=== PATIENT | female | born 1935 ===

== ENCOUNTER 2019-04-30 02:36 | Inpatient (IN) ==
[2019-04-30] MEDS ORDERED: DEXTROSE 50% 25 GM/50 ML VIAL IV PRN (06:14)
[2019-04-30] MEDS ORDERED: ONDANSETRON 4 MG/2 ML VIAL IV PRN (06:14)
[2019-04-30] MEDS ORDERED: GLUCAGON 1 MG VIAL IM PRN (06:14)
[2019-04-30 07:12] LABS: Troponin I 1.73 NG/ML (0.00-0.045)
[2019-04-30 07:20] LABS: Albumin 2.7 G/DL (3.4-5.0); Bilirubin,Total 1.5 MG/DL (0.2-1.0); Calcium 7.9 MG/DL (8.5-10.1); Osmolality,Calculated 302.4 MOS/KG (273-304)
[2019-04-30 08:10] LABS: Basophils % 0.4 % (0.0-0.8); Eosinophils % 0.2 % (0.00-10.9); Hematocrit 43.4 VOL% (35.7-47.0); Hemoglobin 13.3 GM/DL (12.0-16.0); Immature Granulocytes % 0.4 %; Immature Granulocytes Absolute 0.02 #; Lymphocytes # 0.4 10*3/uL (1.4-4.0); Lymphocytes % 8.3 % (21.3-54.2); Mean Corpuscular HGB Conc 30.6 GM/DL (32-36); Mean Corpuscular Volume 99.5 FL (87-102); Mean Platelet Volume 12.1 FL (9.6-12.0); Monocytes % 9.1 % (1.7-12.7); Neutrophils % 81.6 % (38.7-73.9); Platelet Count 100 T/CUMM (130-400); Red Blood Count 4.36 MC/CUMM (3.8-5.5); Red Cell Distribution Width 17.7 % (9.3-17.3); White Blood Count 5.3 T/CUMM (4-12)
[2019-04-30] MEDS: INSULIN REGULAR 100 UNIT/ML SUBCUT SCH ×4 (08:23→21:24)
[2019-04-30 09:48] LABS: Troponin I 1.61 NG/ML (0.00-0.045)
[2019-04-30] MEDS: PANTOPRAZOLE 40 MG TABLET PO SCH (09:50)
[2019-04-30] MEDS ORDERED: VANCOMYCIN INJ 1,500 MG in SODIUM CHLORIDE 0.9% 500 ML IV PRN (09:50)
[2019-04-30] MEDS ORDERED: VANCOMYCIN INJ 1,500 MG in SODIUM CHLORIDE 0.9% 500 ML IV ONE (10:00)
[2019-04-30 13:04] LABS: CKMB % 2.1 %
[2019-04-30 13:07] LABS: Troponin I 1.56 NG/ML (0.00-0.045)
[2019-04-30] MEDS ORDERED: MAGNESIUM SULF RIDER 2 GM in PREMIX 1 EACH IV PRN (15:50)
[2019-04-30] MEDS ORDERED: POTASSIUM CHLORIDE RIDER 10 MEQ in PREMIX 1 EACH IV PRN (15:50)
[2019-04-30] MEDS ORDERED: SODIUM CHLORIDE 0.45% 1,000 ML IV SCH (16:00)
[2019-04-30] MEDS: ACETAMINOPHEN 325 MG TABLET PO PRN (17:00)
[2019-04-30] MEDS ORDERED: METOPROLOL TARTRATE 25 MG TABLET PO SCH (21:00)
[2019-04-30] MEDS ORDERED: SIMVASTATIN 20 MG TABLET PO SCH (21:00)
[2019-04-30] MEDS: ATORVASTATIN 80 MG TABLET PO SCH (21:23)
[2019-04-30] MEDS: ENOXAPARIN 30 MG/0.3 ML SYRINGE SUBCUT SCH (21:23)
[2019-04-30 23:20] LABS: Apearance,Urine CLOUDY (Clear); Bilirubin,Urine Negative (Negative); Blood, Urine Moderate mg/dL (Negative); Glucose,Urine (UA) Negative (Negative); Granular Casts,Urine 9 /LPF (0-1); Hyaline Casts,Urine 55 /LPF (0-3); Ketones,Urine Negative (Negative); Mucus,Urine Occasional /LPF (Occasional); Nitrite,Urine Negative (Negative); Protein,Urine 100 MG/DL; RBC,Urine 3 /HPF (0-4); Squamous Epithelial Cell,Urine Occasional /HPF (0-10); Urine Color Amber (Yellow); Urine Specific Gravity 1.015 (1.001-1.035); WBC,Urine 4 /HPF (0-6)
[2019-04-30] MEDS ORDERED: DEXTROSE 10% 0 ML IV ONE (23:52)
[2019-05-01 01:25] LABS: Albumin 2.5 G/DL (3.4-5.0); Calcium 8.1 MG/DL (8.5-10.1); Osmolality,Calculated 303.3 MOS/KG (273-304); Total Protein 5.7 G/DL (6.4-8.3)
[2019-05-01 05:26] LABS: Basophils % 0.2 % (0.0-0.8); Eosinophils % 0.2 % (0.00-10.9); Hematocrit 42.1 VOL% (35.7-47.0); Hemoglobin 12.9 GM/DL (12.0-16.0); Immature Granulocytes % 0.5 %; Immature Granulocytes Absolute 0.03 #; Lymphocytes # 0.4 10*3/uL (1.4-4.0); Lymphocytes % 6.4 % (21.3-54.2); Mean Corpuscular HGB Conc 30.6 GM/DL (32-36); Mean Corpuscular Volume 99.5 FL (87-102); Mean Platelet Volume 13.5 FL (9.6-12.0); Monocytes % 7.6 % (1.7-12.7); Neutrophils % 85.1 % (38.7-73.9); Red Blood Count 4.23 MC/CUMM (3.8-5.5); White Blood Count 5.8 T/CUMM (4-12)
[2019-05-01 05:40] LABS: Platelet Count 90 T/CUMM (130-400)
[2019-05-01 05:48] LABS: Calcium 7.9 MG/DL (8.5-10.1); Osmolality,Calculated 299.6 MOS/KG (273-304)
[2019-05-01 05:52] LABS: Burr Cells Slight; Hypochromasia 1+; Ovalocytes Slight; Platelet Estimate Decreased
[2019-05-01] MEDS: INSULIN REGULAR 100 UNIT/ML SUBCUT SCH ×4 (08:12→20:20)
[2019-05-01] MEDS: glipiZIDE 5 MG TABLET PO SCH (08:25)
[2019-05-01] MEDS ORDERED: FUROSEMIDE 40 MG/4 ML VIAL IV SCH (09:00)
[2019-05-01] MEDS ORDERED: LIDOCAINE 1% 20 ML VIAL ONE (09:15)
[2019-05-01] MEDS: CHOLECALCIFEROL 5,000 UNIT TABLET PO SCH (10:10)
[2019-05-01] MEDS: LORATADINE 10 MG TABLET PO SCH (10:10)
[2019-05-01] MEDS: PANTOPRAZOLE 40 MG TABLET PO SCH (10:10)
[2019-05-01] MEDS ORDERED: DIAZEPAM 5 MG TABLET PO ONE (10:30)
[2019-05-01] MEDS ORDERED: diphenhydrAMINE CAP 25 MG CAPSULE PO ONE (10:30)
[2019-05-01] MEDS: ASPIRIN EC 81 MG TABLET PO SCH (10:38)
[2019-05-01] MEDS ORDERED: ASPIRIN 325 MG TABLET ONE (11:10)
[2019-05-01] MEDS ORDERED: MIDAZOLAM 2 MG/2 ML VIAL ONE (11:19)
[2019-05-01] MEDS ORDERED: HYDROmorphone 2 MG/1 ML VIAL ONE (11:20)
[2019-05-01] MEDS ORDERED: NALOXONE 0.4 MG/ML VIAL ONE ×2 (11:59→13:08)
[2019-05-01] MEDS ORDERED: flumazeniL 0.5 MG/5 ML VIAL IV ONE (11:59)
[2019-05-01] MEDS ORDERED: NALOXONE 0.4 MG/ML VIAL IV ONE (13:11)
[2019-05-01] MEDS ORDERED: VANCOMYCIN INJ 1,500 MG in SODIUM CHLORIDE 0.9% 500 ML IV SCH (15:00)
[2019-05-01] MEDS ORDERED: ATROPINE 1 MG/10 ML SYRINGE IV PRN (15:35)
[2019-05-01] MEDS: ATORVASTATIN 80 MG TABLET PO SCH (20:21)
[2019-05-01] MEDS: ENOXAPARIN 30 MG/0.3 ML SYRINGE SUBCUT SCH (20:31)
[2019-05-01 22:02] LABS: Allen Test Positive
[2019-05-01 22:06] LABS: ABG Base Excess -7.2 MMOL/L (-2.5-2.5); ABG HCO3 23.7 MMOL/L (20-26); ABG Oxygen Saturation 97.8 % (95-100); ABG PO2 116.2 MM HG (80-95); ABG TCO2 25.9 MMOL/L (23-27)
[2019-05-01 22:08] LABS: ABG PCO2 74.1 MM HG (35-48); ABG PH 7.122 (7.35-7.45)
[2019-05-02 03:35] LABS: Osmolality,Calculated 296.8 MOS/KG (273-304); Thyroid Stimulating Hormone 2.03 uIU/ml (0.358-3.74)
[2019-05-02 04:49] LABS: Basophils % 0.1 % (0.0-0.8); Hematocrit 44.4 VOL% (35.7-47.0); Hemoglobin 13.5 GM/DL (12.0-16.0); Immature Granulocytes % 0.3 %; Immature Granulocytes Absolute 0.02 #; Lymphocytes # 0.5 10*3/uL (1.4-4.0); Lymphocytes % 6.5 % (21.3-54.2); Mean Corpuscular HGB Conc 30.4 GM/DL (32-36); Mean Corpuscular Volume 100.9 FL (87-102); Mean Platelet Volume 13.1 FL (9.6-12.0); Monocytes % 7.6 % (1.7-12.7); Neutrophils % 85.5 % (38.7-73.9); Platelet Count 110 T/CUMM (130-400); Red Cell Distribution Width 18.5 % (9.3-17.3); White Blood Count 7.6 T/CUMM (4-12)
[2019-05-02] MEDS: INSULIN REGULAR 100 UNIT/ML SUBCUT SCH ×4 (07:58→20:41)
[2019-05-02] MEDS: ASPIRIN EC 81 MG TABLET PO SCH (09:28)
[2019-05-02] MEDS: LORATADINE 10 MG TABLET PO SCH (09:30)
[2019-05-02] MEDS: CHOLECALCIFEROL 5,000 UNIT TABLET PO SCH (09:30)
[2019-05-02] MEDS: PANTOPRAZOLE 40 MG TABLET PO SCH (09:30)
[2019-05-02] MEDS: glipiZIDE 5 MG TABLET PO SCH (09:31)
[2019-05-02 15:16] LABS: ABG Base Excess -4.1 MMOL/L (-2.5-2.5); ABG PCO2 52.4 MM HG (35-48); ABG PH 7.263 (7.35-7.45); ABG PO2 85.7 MM HG (80-95); ABG TCO2 21.1 MMOL/L (23-27)
[2019-05-02] MEDS: SODIUM CHLORIDE 0.45% 1,000 ML IV SCH (17:31)
[2019-05-02] MEDS: ACETAMINOPHEN 325 MG TABLET PO PRN (19:50)
[2019-05-02] MEDS: ATORVASTATIN 80 MG TABLET PO SCH (20:05)
[2019-05-02] MEDS: ENOXAPARIN 30 MG/0.3 ML SYRINGE SUBCUT SCH (20:05)
[2019-05-03 03:10] LABS: ABG Base Excess -3.1 MMOL/L (-2.5-2.5); ABG HCO3 21.8 MMOL/L (20-26); ABG Oxygen Saturation 94.3 % (95-100); ABG PCO2 49.3 MM HG (35-48); ABG PH 7.294 (7.35-7.45); ABG PO2 71.8 MM HG (80-95); ABG TCO2 21.5 MMOL/L (23-27)
[2019-05-03] MEDS: ACETAMINOPHEN 325 MG TABLET PO PRN (03:28)
[2019-05-03 05:24] LABS: Basophils % 0.3 % (0.0-0.8); Eosinophils % 0.7 % (0.00-10.9); Hematocrit 37.1 VOL% (35.7-47.0); Hemoglobin 11.5 GM/DL (12.0-16.0); Immature Granulocytes % 0.3 %; Immature Granulocytes Absolute 0.02 #; Lymphocytes # 0.5 10*3/uL (1.4-4.0); Lymphocytes % 8.5 % (21.3-54.2); Mean Corpuscular Volume 100.3 FL (87-102); Monocytes % 9.3 % (1.7-12.7); Neutrophils % 80.9 % (38.7-73.9); Platelet Count 97 T/CUMM (130-400); Red Cell Distribution Width 18.3 % (9.3-17.3)
[2019-05-03 05:49] LABS: Hypochromasia Slight; Lymphocytes 9 % (20-55); Ovalocytes Few; Segmented Neutrophils 88 % (50-85); Total Cells Counted 100
[2019-05-03 05:50] LABS: Microcytosis 1+; Platelet Estimate Decreased; Tear Drop Cells Slight
[2019-05-03 05:54] LABS: Calcium 7.9 MG/DL (8.5-10.1); Osmolality,Calculated 308.3 MOS/KG (273-304)
[2019-05-03] MEDS ORDERED: INFLUENZA VIRUS VACCINE 0.5 ML SYRINGE IM ONE (09:00)
[2019-05-03] MEDS: PANTOPRAZOLE 40 MG TABLET PO SCH (09:58)
[2019-05-03] MEDS: ASPIRIN EC 81 MG TABLET PO SCH (09:58)
[2019-05-03] MEDS: LORATADINE 10 MG TABLET PO SCH (09:58)
[2019-05-03] MEDS: glipiZIDE 5 MG TABLET PO SCH (09:58)
[2019-05-03] MEDS: CHOLECALCIFEROL 5,000 UNIT TABLET PO SCH (09:58)
[2019-05-03] MEDS: INSULIN REGULAR 100 UNIT/ML SUBCUT SCH ×4 (10:13→20:15)
[2019-05-03] MEDS: hydrALAZINE 25 MG TABLET PO SCH ×3 (13:42→20:35)
[2019-05-03] MEDS: SODIUM CHLORIDE 0.45% 1,000 ML IV SCH ×2 (13:43→22:10)
[2019-05-03] MEDS: ISOSORBIDE DINITRATE 20 MG TABLET PO SCH ×2 (16:47→20:35)
[2019-05-03 17:34] LABS: Apearance,Urine Slightly Hazy (Clear); Bacteria,Urine Few /HPF (Few); Bilirubin,Urine Negative (Negative); Blood, Urine Moderate mg/dL (Negative); Glucose,Urine (UA) Negative (Negative); Hyaline Casts,Urine 16 /LPF (0-3); Ketones,Urine Negative (Negative); Mucus,Urine Occasional /LPF (Occasional); Nitrite,Urine Negative (Negative); Protein,Urine 30 MG/DL; Squamous Epithelial Cell,Urine Occasional /HPF (0-10); Urine Color Yellow (Yellow); Urine Specific Gravity 1.019 (1.001-1.035); WBC,Urine 4 /HPF (0-6)
[2019-05-03 19:03] LABS: Protein/Creatinine Ratio,Urine 0.7 RATIO
[2019-05-03] MEDS: ATORVASTATIN 80 MG TABLET PO SCH (20:35)
[2019-05-03] MEDS: ENOXAPARIN 30 MG/0.3 ML SYRINGE SUBCUT SCH (20:35)
[2019-05-04 04:34] LABS: Basophils % 0.5 % (0.0-0.8); Eosinophils # 0.1 10*3/uL (0.0-0.87); Eosinophils % 2.1 % (0.00-10.9); Hematocrit 34.5 VOL% (35.7-47.0); Hemoglobin 10.9 GM/DL (12.0-16.0); Immature Granulocytes % 0.2 %; Immature Granulocytes Absolute 0.01 #; Lymphocytes # 0.4 10*3/uL (1.4-4.0); Lymphocytes % 7.5 % (21.3-54.2); Mean Corpuscular HGB Conc 31.6 GM/DL (32-36); Mean Corpuscular Volume 97.7 FL (87-102); Mean Platelet Volume 12.6 FL (9.6-12.0); Monocytes % 10.3 % (1.7-12.7); Neutrophils % 79.4 % (38.7-73.9); Platelet Count 107 T/CUMM (130-400); Red Blood Count 3.53 MC/CUMM (3.8-5.5); Red Cell Distribution Width 17.7 % (9.3-17.3); White Blood Count 5.8 T/CUMM (4-12)
[2019-05-04 04:57] LABS: Osmolality,Calculated 303.7 MOS/KG (273-304)
[2019-05-04 05:02] LABS: Albumin 2.6 G/DL (3.4-5.0); Bilirubin,Direct 0.45 MG/DL (0.0-0.20); Bilirubin,Indirect 0.8 MG/DL (0.0-1.0); Bilirubin,Total 1.2 MG/DL (0.2-1.0); Total Protein 5.7 G/DL (6.4-8.3)
[2019-05-04] MEDS: INSULIN REGULAR 100 UNIT/ML SUBCUT SCH ×4 (07:52→21:28)
[2019-05-04] MEDS: LORATADINE 10 MG TABLET PO SCH (08:28)
[2019-05-04] MEDS: ISOSORBIDE DINITRATE 20 MG TABLET PO SCH ×3 (08:28→21:27)
[2019-05-04] MEDS: CHOLECALCIFEROL 5,000 UNIT TABLET PO SCH (08:28)
[2019-05-04] MEDS: glipiZIDE 5 MG TABLET PO SCH (08:28)
[2019-05-04] MEDS: ASPIRIN EC 81 MG TABLET PO SCH (08:28)
[2019-05-04] MEDS: PANTOPRAZOLE 40 MG TABLET PO SCH (08:28)
[2019-05-04] MEDS: hydrALAZINE 25 MG TABLET PO SCH ×3 (08:28→21:27)
[2019-05-04] MEDS: cefTRIAXone 1,000 MG in SYRINGE 1 EACH IV SCH (11:01)
[2019-05-04] MEDS: ATORVASTATIN 80 MG TABLET PO SCH (21:27)
[2019-05-04] MEDS: ENOXAPARIN 30 MG/0.3 ML SYRINGE SUBCUT SCH (21:27)
[2019-05-05] MEDS: SODIUM CHLORIDE 0.45% 1,000 ML IV SCH (02:26)
[2019-05-05 04:36] LABS: Basophils % 0.4 % (0.0-0.8); Eosinophils # 0.2 10*3/uL (0.0-0.87); Eosinophils % 3.1 % (0.00-10.9); Hematocrit 32.8 VOL% (35.7-47.0); Hemoglobin 10.3 GM/DL (12.0-16.0); Immature Granulocytes % 0.2 %; Immature Granulocytes Absolute 0.01 #; Lymphocytes # 0.3 10*3/uL (1.4-4.0); Lymphocytes % 4.9 % (21.3-54.2); Mean Corpuscular HGB Conc 31.4 GM/DL (32-36); Mean Corpuscular Volume 96.5 FL (87-102); Monocytes % 10.4 % (1.7-12.7); Platelet Count 101 T/CUMM (130-400); White Blood Count 5.5 T/CUMM (4-12)
[2019-05-05 04:53] LABS: Calcium 7.8 MG/DL (8.5-10.1); Osmolality,Calculated 302.4 MOS/KG (273-304)
[2019-05-05 05:40] LABS: Anisocytosis 1+; Band Neutrophils 2 % (0-10); Eosinophils 3 % (0-10); Lymphocytes 4 % (20-55); Ovalocytes 2+; Platelet Estimate Adequate; Segmented Neutrophils 84 % (50-85); Total Cells Counted 100
[2019-05-05] MEDS ORDERED: LACTULOSE 20 GM/30 ML UDCUP PO ONE (09:19)
[2019-05-05] MEDS: LORATADINE 10 MG TABLET PO SCH (09:49)
[2019-05-05] MEDS: ISOSORBIDE DINITRATE 20 MG TABLET PO SCH ×3 (09:49→21:44)
[2019-05-05] MEDS: CHOLECALCIFEROL 5,000 UNIT TABLET PO SCH (09:49)
[2019-05-05] MEDS: ASPIRIN EC 81 MG TABLET PO SCH (09:49)
[2019-05-05] MEDS: hydrALAZINE 25 MG TABLET PO SCH ×3 (09:50→21:44)
[2019-05-05] MEDS: INSULIN REGULAR 100 UNIT/ML SUBCUT SCH ×4 (09:50→21:44)
[2019-05-05] MEDS: PANTOPRAZOLE 40 MG TABLET PO SCH (09:50)
[2019-05-05] MEDS: cefTRIAXone 1,000 MG in SYRINGE 1 EACH IV SCH (11:29)
[2019-05-05 11:33] LABS: Albumin 2.1 G/DL (3.4-5.0); Bilirubin,Direct 0.32 MG/DL (0.0-0.20); Bilirubin,Indirect 0.5 MG/DL (0.0-1.0); Bilirubin,Total 0.8 MG/DL (0.2-1.0); Total Protein 5.3 G/DL (6.4-8.3)
[2019-05-05 12:39] LABS: Hepatitis B Core IgM Quant 0.12 Index; Hepatitis B Surface Ag Quant < 0.10 Index; Hepatitis B Surface Ag Result Negative (Negative); Hepatitis C Virus Ab Quant 0.05 Index; Hepatitis C Virus Ab Result Negative (Negative)
[2019-05-05] MEDS ORDERED: LACTULOSE 20 GM/30 ML UDCUP PO PRN (21:00)
[2019-05-05] MEDS: ATORVASTATIN 80 MG TABLET PO SCH (21:44)
[2019-05-05] MEDS: ENOXAPARIN 30 MG/0.3 ML SYRINGE SUBCUT SCH (21:44)
[2019-05-06] MEDS: SODIUM CHLORIDE 0.45% 1,000 ML IV SCH (05:00)
[2019-05-06 05:21] LABS: Calcium 7.9 MG/DL (8.5-10.1); Osmolality,Calculated 299.6 MOS/KG (273-304)
[2019-05-06] MEDS: INSULIN REGULAR 100 UNIT/ML SUBCUT SCH ×4 (08:17→21:12)
[2019-05-06] MEDS ORDERED: METOPROLOL TARTRATE 25 MG TABLET PO SCH ×2 (09:00)
[2019-05-06] MEDS: ASPIRIN EC 81 MG TABLET PO SCH (09:57)
[2019-05-06] MEDS: hydrALAZINE 25 MG TABLET PO SCH ×3 (09:57→21:14)
[2019-05-06] MEDS: CHOLECALCIFEROL 5,000 UNIT TABLET PO SCH (09:57)
[2019-05-06] MEDS: SACUBITRIL/VALSARTAN 49-51 MG TABLET PO SCH ×2 (09:57→21:14)
[2019-05-06] MEDS: LORATADINE 10 MG TABLET PO SCH (09:58)
[2019-05-06] MEDS: ISOSORBIDE DINITRATE 20 MG TABLET PO SCH ×3 (09:58→21:15)
[2019-05-06] MEDS: carvediloL 3.125 MG TABLET PO SCH ×2 (09:58→21:13)
[2019-05-06] MEDS: PANTOPRAZOLE 40 MG TABLET PO SCH (09:58)
[2019-05-06] MEDS: cefTRIAXone 1,000 MG in SYRINGE 1 EACH IV SCH (11:53)
[2019-05-06 15:41] LABS: ABG Base Excess -0.2 MMOL/L (-2.5-2.5); ABG HCO3 24.2 MMOL/L (20-26); ABG Oxygen Saturation 94.6 % (95-100); ABG PCO2 50.9 MM HG (35-48); ABG PH 7.324 (7.35-7.45); ABG PO2 73.5 MM HG (80-95)
[2019-05-06] MEDS ORDERED: FUROSEMIDE 40 MG/4 ML VIAL IV ONE (16:42)
[2019-05-06] MEDS: ACETAMINOPHEN 325 MG TABLET PO PRN (21:13)
[2019-05-06] MEDS: ATORVASTATIN 80 MG TABLET PO SCH (21:14)
[2019-05-06] MEDS: ENOXAPARIN 40 MG/0.4 ML SYRINGE SUBCUT SCH (21:15)
[2019-05-07 05:49] LABS: Basophils % 0.2 % (0.0-0.8); Eosinophils # 0.3 10*3/uL (0.0-0.87); Eosinophils % 5.4 % (0.00-10.9); Hematocrit 35.9 VOL% (35.7-47.0); Immature Granulocytes % 0.3 %; Immature Granulocytes Absolute 0.02 #; Lymphocytes # 0.2 10*3/uL (1.4-4.0); Lymphocytes % 2.4 % (21.3-54.2); Mean Corpuscular HGB Conc 30.6 GM/DL (32-36); Mean Corpuscular Volume 98.9 FL (87-102); Mean Platelet Volume 12.5 FL (9.6-12.0); Neutrophils % 85.7 % (38.7-73.9); Platelet Count 115 T/CUMM (130-400); Red Blood Count 3.63 MC/CUMM (3.8-5.5); Red Cell Distribution Width 17.7 % (9.3-17.3); White Blood Count 6.3 T/CUMM (4-12)
[2019-05-07 06:07] LABS: Calcium 7.5 MG/DL (8.5-10.1); Osmolality,Calculated 294.8 MOS/KG (273-304)
[2019-05-07 06:18] LABS: Burr Cells Slight; Eosinophils 4 % (0-10); Hypochromasia 1+; Lymphocytes 2 % (20-55); Ovalocytes Slight; Platelet Estimate Decreased; Segmented Neutrophils 89 % (50-85); Total Cells Counted 100
[2019-05-07] MEDS ORDERED: FUROSEMIDE 40 MG/4 ML VIAL IV ONE (08:00)
[2019-05-07] MEDS: INSULIN REGULAR 100 UNIT/ML SUBCUT SCH ×4 (08:04→21:38)
[2019-05-07] MEDS ORDERED: MAGNESIUM SULF RIDER 4 GM in PREMIX 1 EACH IV PRN (08:16)
[2019-05-07] MEDS ORDERED: MAGNESIUM SULF RIDER 2 GM in PREMIX 1 EACH IV PRN (08:16)
[2019-05-07] MEDS: ASPIRIN EC 81 MG TABLET PO SCH (08:53)
[2019-05-07] MEDS: SACUBITRIL/VALSARTAN 49-51 MG TABLET PO SCH ×2 (08:53→21:37)
[2019-05-07] MEDS: CHOLECALCIFEROL 5,000 UNIT TABLET PO SCH (08:54)
[2019-05-07] MEDS: LORATADINE 10 MG TABLET PO SCH (08:54)
[2019-05-07] MEDS: carvediloL 3.125 MG TABLET PO SCH (08:54)
[2019-05-07] MEDS: ISOSORBIDE DINITRATE 20 MG TABLET PO SCH ×3 (08:54→21:38)
[2019-05-07] MEDS: hydrALAZINE 25 MG TABLET PO SCH ×3 (08:54→21:37)
[2019-05-07] MEDS: PANTOPRAZOLE 40 MG TABLET PO SCH (08:54)
[2019-05-07] MEDS: cefTRIAXone 1,000 MG in SYRINGE 1 EACH IV SCH (12:13)
[2019-05-07] MEDS ORDERED: TUBERCULIN SKIN TEST 0.1 ML SYRINGE INTRADERM ONE (12:40)
[2019-05-07] MEDS ORDERED: ceFAZolin 1,000 MG in SYRINGE 1 EACH IV ONE (15:27)
[2019-05-07] MEDS ORDERED: ceFAZolin 1,000 MG VIAL IRRIG ONE (15:27)
[2019-05-07] MEDS: ATORVASTATIN 80 MG TABLET PO SCH (21:37)
[2019-05-07] MEDS: ACETAMINOPHEN 325 MG TABLET PO PRN (21:38)
[2019-05-07] MEDS: ENOXAPARIN 40 MG/0.4 ML SYRINGE SUBCUT SCH (21:39)
[2019-05-08 06:14] LABS: Basophils % 0.1 % (0.0-0.8); Eosinophils # 0.4 10*3/uL (0.0-0.87); Eosinophils % 5.8 % (0.00-10.9); Hematocrit 37.3 VOL% (35.7-47.0); Hemoglobin 11.7 GM/DL (12.0-16.0); Immature Granulocytes % 0.3 %; Immature Granulocytes Absolute 0.02 #; Lymphocytes # 0.4 10*3/uL (1.4-4.0); Lymphocytes % 5.2 % (21.3-54.2); Mean Corpuscular HGB Conc 31.4 GM/DL (32-36); Mean Corpuscular Volume 99.2 FL (87-102); Mean Platelet Volume 11.7 FL (9.6-12.0); Monocytes % 8.8 % (1.7-12.7); Neutrophils % 79.8 % (38.7-73.9); Platelet Count 131 T/CUMM (130-400); Red Blood Count 3.76 MC/CUMM (3.8-5.5); Red Cell Distribution Width 17.5 % (9.3-17.3); White Blood Count 6.7 T/CUMM (4-12)
[2019-05-08 06:40] LABS: Calcium 8.2 MG/DL (8.5-10.1); Osmolality,Calculated 298.4 MOS/KG (273-304)
[2019-05-08] MEDS: SACUBITRIL/VALSARTAN 49-51 MG TABLET PO SCH (09:06)
[2019-05-08] MEDS: CHOLECALCIFEROL 5,000 UNIT TABLET PO SCH (09:06)
[2019-05-08] MEDS: hydrALAZINE 25 MG TABLET PO SCH ×3 (09:07→21:31)
[2019-05-08] MEDS: FUROSEMIDE 40 MG TABLET PO SCH (09:07)
[2019-05-08] MEDS: ASPIRIN EC 81 MG TABLET PO SCH (09:07)
[2019-05-08] MEDS: ISOSORBIDE DINITRATE 20 MG TABLET PO SCH ×3 (09:07→21:31)
[2019-05-08] MEDS: LORATADINE 10 MG TABLET PO SCH (09:07)
[2019-05-08] MEDS: PANTOPRAZOLE 40 MG TABLET PO SCH (09:08)
[2019-05-08] MEDS: INSULIN REGULAR 100 UNIT/ML SUBCUT SCH ×3 (09:08→21:31)
[2019-05-08] MEDS ORDERED: DIAZEPAM 5 MG TABLET PO ONE (11:00)
[2019-05-08] MEDS ORDERED: diphenhydrAMINE CAP 25 MG CAPSULE PO ONE (11:00)
[2019-05-08] MEDS ORDERED: LIDOCAINE 1% 20 ML VIAL ONE (11:20)
[2019-05-08] MEDS ORDERED: ceFAZolin 1,000 MG VIAL ONE (11:20)
[2019-05-08] MEDS ORDERED: HEPARIN/NACL 0.9% 2 UNITS/ML 500 ML IV ONE (11:20)
[2019-05-08] MEDS ORDERED: TISSUE ADHESIVE 1 EACH APPLICATOR TOP ONE (11:24)
[2019-05-08] MEDS: cefTRIAXone 1,000 MG in SYRINGE 1 EACH IV SCH (17:24)
[2019-05-08] MEDS ORDERED: LISINOPRIL 10 MG TABLET PO SCH (21:00)
[2019-05-08] MEDS: METOPROLOL TARTRATE 25 MG TABLET PO SCH (21:31)
[2019-05-08] MEDS: ZINC OXIDE PASTE 113 GM TUBE TOP SCH (21:31)
[2019-05-08] MEDS: ATORVASTATIN 80 MG TABLET PO SCH (21:31)
[2019-05-09] MEDS: ceFAZolin 1,000 MG in SYRINGE 1 EACH IV SCH ×2 (00:55→08:18)
[2019-05-09 05:25] LABS: Basophils % 0.2 % (0.0-0.8); Eosinophils # 0.2 10*3/uL (0.0-0.87); Eosinophils % 3.1 % (0.00-10.9); Hematocrit 39.3 VOL% (35.7-47.0); Hemoglobin 11.8 GM/DL (12.0-16.0); Immature Granulocytes % 0.5 %; Immature Granulocytes Absolute 0.03 #; Lymphocytes # 0.3 10*3/uL (1.4-4.0); Lymphocytes % 5.6 % (21.3-54.2); Mean Corpuscular Volume 101.8 FL (87-102); Mean Platelet Volume 12.1 FL (9.6-12.0); Monocytes % 6.8 % (1.7-12.7); Neutrophils % 83.8 % (38.7-73.9); Platelet Count 130 T/CUMM (130-400); Red Blood Count 3.86 MC/CUMM (3.8-5.5); Red Cell Distribution Width 17.9 % (9.3-17.3); White Blood Count 6.1 T/CUMM (4-12)
[2019-05-09 05:48] LABS: Calcium 7.6 MG/DL (8.5-10.1); Osmolality,Calculated 295.7 MOS/KG (273-304)
[2019-05-09] MEDS: INSULIN REGULAR 100 UNIT/ML SUBCUT SCH (08:17)
[2019-05-09] MEDS: ZINC OXIDE PASTE 113 GM TUBE TOP SCH (08:17)
[2019-05-09] MEDS: ASPIRIN EC 81 MG TABLET PO SCH (08:18)
[2019-05-09] MEDS: PANTOPRAZOLE 40 MG TABLET PO SCH (08:18)
[2019-05-09] MEDS: LORATADINE 10 MG TABLET PO SCH (08:18)
[2019-05-09] MEDS: ISOSORBIDE DINITRATE 20 MG TABLET PO SCH (08:18)
[2019-05-09] MEDS: CHOLECALCIFEROL 5,000 UNIT TABLET PO SCH (08:18)
[2019-05-09] MEDS ORDERED: METOPROLOL TARTRATE 25 MG TABLET PO SCH (10:18)
[2019-05-09] MEDS: ACETAMINOPHEN 325 MG TABLET PO PRN (11:27)
[2019-05-09] MEDS ORDERED: INFLUENZA VIRUS VACCINE 0.5 ML SYRINGE IM ONE (11:30)
[2019-05-09 11:58] VITALS: BP 104/57
[2019-05-09] MEDS: FUROSEMIDE 40 MG TABLET PO SCH (12:07)
[2019-05-09] MEDS: cefTRIAXone 1,000 MG in SYRINGE 1 EACH IV SCH (12:07)
[2019-05-09] MEDS: METOPROLOL TARTRATE 25 MG TABLET PO SCH (12:08)
[2019-05-09] MEDS: hydrALAZINE 25 MG TABLET PO SCH (12:08)
[2019-05-09] MEDS ORDERED: cephALEXin 500 MG CAPSULE PO SCH (14:00)
[2019-05-09] MEDS ORDERED: hydrALAZINE 10 MG TABLET PO SCH (15:00)
[2019-05-09] MEDS ORDERED: LOSARTAN 25 MG TABLET PO SCH (21:00)
== END 2019-05-09 12:00 | DRG 242 ==
LOC: N.2E → OBSVTOIN 05:14 → SUATTDRO 05:14 → N.CC 05-01 14:08 → N.TELES 05-03 15:05
PROVIDERS: ADMIT Internal Medicine; ATTEND Hospitalist

== ENCOUNTER 2019-05-10 10:30 | Inpatient (IN) ==
[2019-05-10] MEDS ORDERED: FUROSEMIDE 40 MG/4 ML VIAL IV STA (10:58)
[2019-05-10] MEDS ORDERED: VECURONIUM 10 MG VIAL IV ONE ×2 (11:00→11:19)
[2019-05-10] MEDS ORDERED: ETOMIDATE 20 MG/10 ML VIAL IV STA (11:00)
[2019-05-10 11:13] LABS: ABG Base Excess -1.1 MMOL/L (-2.5-2.5); ABG HCO3 23.4 MMOL/L (20-26); ABG Oxygen Saturation 94.8 % (95-100); ABG PH 7.294 (7.35-7.45); ABG PO2 74.8 MM HG (80-95); ABG TCO2 23.8 MMOL/L (23-27)
[2019-05-10 11:17] LABS: Basophils % 0.3 % (0.0-0.8); Eosinophils # 0.1 10*3/uL (0.0-0.87); Eosinophils % 1.4 % (0.00-10.9); Hematocrit 35.5 VOL% (35.7-47.0); Immature Granulocytes % 0.4 %; Immature Granulocytes Absolute 0.03 #; Lymphocytes # 0.6 10*3/uL (1.4-4.0); Lymphocytes % 8.3 % (21.3-54.2); Mean Corpuscular Volume 99.4 FL (87-102); Monocytes % 10.1 % (1.7-12.7); Neutrophils % 79.5 % (38.7-73.9); Platelet Count 129 T/CUMM (130-400); Red Blood Count 3.57 MC/CUMM (3.8-5.5); Red Cell Distribution Width 17.7 % (9.3-17.3); White Blood Count 7.2 T/CUMM (4-12)
[2019-05-10] MEDS ORDERED: ETOMIDATE 20 MG/10 ML VIAL IV ONE (11:19)
[2019-05-10] MEDS ORDERED: SODIUM BICARBONATE 50 MEQ/50 ML VIAL IV STA (11:19)
[2019-05-10 11:28] LABS: INR 1.1; PT Patient Result 11.9 SECS (9.6-12.2)
[2019-05-10] MEDS ORDERED: CLINDAMYCIN INJ 600 MG in PREMIX 1 EACH IV STA (11:42)
[2019-05-10 11:48] LABS: Amorphous Crystals,Urine Few /HPF (Few); Apearance,Urine CLOUDY (Clear); Bilirubin,Urine Negative (Negative); Blood, Urine Negative (Negative); Glucose,Urine (UA) Negative (Negative); Ketones,Urine Negative (Negative); Nitrite,Urine Negative (Negative); Protein,Urine Negative; Squamous Epithelial Cell,Urine Occasional /HPF (0-10); Urine Color Yellow (Yellow); Urine Specific Gravity 1.012 (1.001-1.035); Urine Urobilinogen < 2.0 EU/DL (0.2-1.0)
[2019-05-10 11:50] LABS: Bilirubin,Total 0.6 MG/DL (0.2-1.0); Calcium 8.1 MG/DL (8.5-10.1); Osmolality,Calculated 298.7 MOS/KG (273-304); Total Protein 5.2 G/DL (6.4-8.3)
[2019-05-10 11:57] LABS: Barbiturates Screen,Urine Negative (Negative); Benzodiazepines Screen,Urine Positive (Negative); Cannabinoid Screen,Urine Negative (Negative); Opiate Screen,Urine Negative (Negative); Phencyclidine Screen,Urine Negative (Negative)
[2019-05-10] MEDS ORDERED: SODIUM BICARBONATE 10 MEQ/10 ML SYRINGE IV ONE (11:57)
[2019-05-10] MEDS ORDERED: SODIUM BICARBONATE 50 MEQ/50 ML SYRINGE IV ONE (12:02)
[2019-05-10] MEDS ORDERED: MORPHINE 4 MG/1 ML VIAL IV PRN ×2 (12:33→21:42)
[2019-05-10] MEDS ORDERED: ONDANSETRON 4 MG/2 ML VIAL IV PRN (12:33)
[2019-05-10] MEDS ORDERED: ENOXAPARIN 30 MG/0.3 ML SYRINGE SUBCUT SCH (13:00)
[2019-05-10] MEDS ORDERED: LACTULOSE 20 GM/30 ML UDCUP PO PRN (13:32)
[2019-05-10] MEDS ORDERED: ACETAMINOPHEN 325 MG TABLET PO PRN (13:32)
[2019-05-10 13:57] VITALS: BP 174/79
[2019-05-10] MEDS ORDERED: cefTRIAXone 1,000 MG in SYRINGE 1 EACH IV SCH (14:00)
[2019-05-10] MEDS ORDERED: AZITHROMYCIN INJ 500 MG in SODIUM CHLORIDE 0.9% 250 ML IV SCH (14:30)
[2019-05-10] MEDS ORDERED: METOPROLOL TARTRATE 25 MG TABLET PO SCH (21:00)
[2019-05-10] MEDS ORDERED: ATORVASTATIN 80 MG TABLET PO SCH (21:00)
[2019-05-10] MEDS ORDERED: LOSARTAN 25 MG TABLET PO SCH (21:00)
[2019-05-11] MEDS ORDERED: FUROSEMIDE 40 MG/4 ML VIAL IV SCH (08:00)
[2019-05-11] MEDS ORDERED: ASPIRIN EC 81 MG TABLET PO SCH (09:00)
[2019-05-11] MEDS ORDERED: LORATADINE 10 MG TABLET PO SCH (09:00)
[2019-05-11] MEDS ORDERED: CHOLECALCIFEROL 5,000 UNIT TABLET PO SCH (09:00)
[2019-05-11] MEDS ORDERED: PANTOPRAZOLE 40 MG TABLET PO SCH (09:00)
[2019-05-11] MEDS ORDERED: FUROSEMIDE 40 MG TABLET PO SCH (09:00)
== END 2019-05-10 23:13 | disposition expired | DRG 208 ==
LOC: EDBD → EDUNIT# → N.ED 10:30 → N.EDINP 12:33 → N.CC 13:07
PROVIDERS: ADMIT Hospitalist; ATTEND Hospitalist